=== PATIENT | female | born 1980 | race Caucasian/White ===

== ENCOUNTER 2018-04-01 22:11 | Emergency (ER) | payer OTHER ==
[2018-04-01 23:39] VITALS: BP 146/100
--- NOTE | 2018-04-02 08:16 | ER ---
DISCHARGE DATE: REASON FOR VISIT: Fever. HISTORY OF PRESENT ILLNESS: This is a 37-year-old female, who had a cruciate ligament repair last week, a week ago. Complains of fever and chills that started this morning with temperature up to 105. She has noted no worsening of the swelling or worsening of the pain of the knee. REVIEW OF SYSTEMS: Has a cough, chronic, due to asthma. SOCIAL HISTORY: Smoker. PHYSICAL EXAMINATION: VITAL SIGNS: Blood pressure is 147/97, temperature 98.6, initial heart rate is 110. EXTREMITIES: Left knee, there is mild effusion. The incision is intact. Range of motion is slightly limited. Slightly warm to palpation. No drainage or induration is noted. LABORATORY DATA: White cell count is normal with no left shift or white cell count elevation. Sodium is normal. Electrolytes are normal and CRP is 3.9. IMPRESSION: Fever, acute febrile illness. PLAN: I did not feel convinced that there is significant infection of the left knee after the surgery. However, I have advised her to be seen by the surgeon tomorrow. Return to the clinic or to the emergency room with any worsening symptoms. Her temperature at discharge was 99.1. Time of discharge was 11:20. /[id number] MONY/LEV
== END 2018-04-01 23:33 | disposition home or self-care (01) ==
LOC: FB.ED 22:11
DX: R50.9 Fever, unspecified (principal)
CPT/HCPCS: 36415; 80048; 83605; 85025; 86140; 99283

== ENCOUNTER 2024-05-21 22:03 | Emergency (ER) | payer OTHER ==
[2024-05-21] MEDS ORDERED: Sodium Chloride 0.9% 10 ML Syringe FLUSH PRN (22:24)
[2024-05-21] MEDS: Sodium Chloride 0.9% 1,000 ML IV ONE (22:35)
[2024-05-21] MEDS: Ondansetron 4 MG/2 ML SDV IVPUSH ONE (22:35)
[2024-05-21] MEDS: HYDROmorphone 2 MG/ML SDV IVPUSH ONE (22:35)
[2024-05-21 22:45] LABS: BASOPHILS ABSOLUTE AUTO 0.1 x10-3/uL (0.0-0.1); BASOPHILS PERCENT AUTO 0.8 % (0.2-1.5); EOSINOPHILS ABSOLUTE AUTO 0.2 x10-3/uL (0.0-0.8); EOSINOPHILS PERCENT AUTO 2.9 % (0.6-8.1); LYMPHOCYTES ABSOLUTE AUTO 2.5 x10-3/uL (1.0-4.4); LYMPHOCYTES PERCENT AUTO 30.5 % (18.4-52.1); MEAN CORPUSCULAR HEMOGLOBIN 29.5 pg (23.9-33.9); MEAN CORPUSCULAR HGB CONC 34.2 g/dL (31.9-34.8); MEAN CORPUSCULAR VOLUME 86.2 fL (76.7-100.5); MEAN PLATELET VOLUME 8.5 fL (7.1-12.4); MONOCYTES ABSOLUTE AUTO 0.6 x10-3/uL (0.3-1.0); MONOCYTES PERCENT AUTO 7.3 % (4.4-15.7); NEUTROPHILS ABSOLUTE AUTO 4.8 x10-3/uL (1.5-6.3); NEUTROPHILS PERCENT AUTO 58.5 % (30.8-76.2); PLATELET COUNT,PLT 250 x10(3)uL (151-488); RED BLOOD CELL COUNT 4.75 x10(6)uL (3.60-5.20); RED CELL DISTRIBUTION WIDTH 13.7 % (12.3-16.5); WHITE BLOOD CELL COUNT,WBC 8.2 x10-3/uL (3.0-10.3)
[2024-05-21 22:48] LABS: BLOOD UREA NITROGEN,BUN 17 mg/dL (7-18); BUN/CREATININE RATIO 18.9 (9-20); CALCIUM 8.6 mg/dL (8.6-10.2); CARBON DIOXIDE,CO2 27 mmol/L (21-32); CHLORIDE,CL 103 mmol/L (100-110); CREATININE 0.9 mg/dL (0.55-1.02); ESTIMATED GFR 81 mL/min (>60); GLUCOSE RANDOM 127 mg/dL (80-116); POTASSIUM,K 3.7 mmol/L (3.5-5.3); SODIUM,NA 140 mmol/L (135-145)
[2024-05-21 22:51] LABS: C-REACTIVE PROTEIN 0.77 mg/dL (<0.50)
[2024-05-21 22:54] LABS: ALANINE AMINOTRANSFERASE,ALT 39 U/L (12-36); ALBUMIN 3.5 g/dL (3.5-5.2); ALKALINE PHOSPHATASE 49 IU/L (56-112); ASPARTATE AMNIOTRANSFERASE,AST 21 IU/L (5-25); BILIRUBIN TOTAL 0.6 mg/dL (0.1-1.3)
[2024-05-21 22:58] LABS: LACTIC ACID 1.5 mmol/L (0.4-2.0)
[2024-05-21 23:10] LABS: BILIRUBIN,URINE NEGATIVE (NEGATIVE); GLUCOSE,URINE NORMAL (NORMAL); KETONES,URINE NEGATIVE (NEGATIVE); LEUKOCYTE ESTERASE,URINE NEGATIVE (NEGATIVE); NITRITE,URINE NEGATIVE (NEGATIVE); OCCULT BLOOD,URINE NEGATIVE (NEGATIVE); PROTEIN,URINE 30 mg/dL (NEGATIVE); UROBILINOGEN,URINE NORMAL (NEGATIVE)
[2024-05-21 23:18] LABS: APPEARANCE,URINE CLEAR (CLEAR); BACTERIA,URINE FEW (NS); COLOR,URINE YELLOW (YELLOW); RBC,URINE 0-5 (0-5); SQUAMOUS EPITHELIAL CELLS,UR FEW (NS,R,O); WBC,URINE 0-5 (0-5)
[2024-05-21 23:51] VITALS: BP 144/82; PULSE 76
== END 2024-05-21 23:58 | disposition home or self-care (01) ==
LOC: FB.ED 22:03
DX: N83.201 Unspecified ovarian cyst, right side (principal); I10 Essential (primary) hypertension; F17.210 Nicotine dependence, cigarettes, uncomplicated; Z79.82 Long term (current) use of aspirin; Z79.899 Other long term (current) drug therapy
CPT/HCPCS: 36415; 74176; 80053; 81001; 83605; 83690; 85025; 86140; 96361; 96374; 96375; 99284; 99284-25; J1170; J2405; J7030

== ENCOUNTER 2024-11-30 09:16 | Emergency (ER) | payer OTHER ==
[2024-11-30] MEDS: Ibuprofen 800 MG Tab PO ONE (09:48)
[2024-11-30] MEDS: Diphtheria,Pertussis(Acell),Tetanus Vaccine 0.5 ML Syringe IM ONE (10:10)
[2024-11-30 11:10] VITALS: BP 135/91; PULSE 95
== END 2024-11-30 11:05 | disposition home or self-care (01) ==
LOC: FB.ED 09:16
DX: S63.287A Dislocation of proximal interphalangeal joint of left little finger, initial encounter (principal); I10 Essential (primary) hypertension; F17.210 Nicotine dependence, cigarettes, uncomplicated; Z79.899 Other long term (current) drug therapy; Z79.51 Long term (current) use of inhaled steroids; Z79.84 Long term (current) use of oral hypoglycemic drugs; Z23 Encounter for immunization; W00.9XXA Unspecified fall due to ice and snow, initial encounter; Y93.89 Activity, other specified
CPT/HCPCS: 73130; 73140; 90471; 90715; 99283; A9270